=== PATIENT | female | born 1965 | race Caucasian/White ===

== ENCOUNTER 2019-05-05 09:20 | Day surgery (SDC) | payer OTHER ==
--- OUTSIDE RECORDS SUMMARY | 2019-05-05 09:27 | XMS REPORT ---
:1965 [facility] Address [address] [place] [address] Dr. Lora [address] [place] [id number] Care Team Providers Name Role Phone Unavailable Unavailable Unavailable Problems This patient has no known problems. Allergies, Adverse Reactions, Alerts This patient has no known allergies or adverse reactions. Medications This patient has no known medications.
[2019-05-05] MEDS ORDERED: Ringers Lactate 1,000 ML IV ONE (09:39)
[2019-05-05] MEDS ORDERED: OXYMETAZOLINE HCL 0.05% 15ML NAS ONE ×4 (09:39→11:17)
[2019-05-05] MEDS ORDERED: NA CHLORIDE 0.9% 250 ML ONE (11:18)
[2019-05-05] MEDS ORDERED: LIDOCAINE 1% W/EPI 1:100,000 MDV 20 ML VIAL ONE (11:18)
[2019-05-05] MEDS ORDERED: MIDAZOLAM HCL 2 MG/2 ML INJ ONE (11:19)
[2019-05-05] MEDS ORDERED: propofoL 200 MG/20 ML VIAL IV ONE (11:19)
[2019-05-05] MEDS ORDERED: GLYCOPYRROLATE 0.2 MG/ML SYR ONE (11:19)
[2019-05-05] MEDS ORDERED: LIDOCAINE 2% MPF 5 ML VIAL ONE (11:20)
[2019-05-05] MEDS ORDERED: dexAMETHasone 10 MG/ML VIAL ONE (11:20)
[2019-05-05] MEDS ORDERED: FENTANYL CITR 250 MCG/5 ML ONE (11:20)
[2019-05-05] MEDS ORDERED: ROCURONIUM 50 MG/5 ML VIAL IV ONE (11:20)
[2019-05-05] MEDS ORDERED: ONDANSETRON 4 MG/2 ML VIAL ONE (13:17)
[2019-05-05 14:19] VITALS: BP 166/82; TEMP 97.6; O2SAT 94
[2019-05-05] MEDS ORDERED: TRAMADOL HCL 50 MG TAB ONE (15:19)
--- NOTE | 2019-05-06 00:47 | OP ---
Date of Procedure: 05/05/2019 Surgeon: Dorothy Rodriguez MD Preoperative Diagnoses: Acute recurrent sinusitis, chronic; Barosinusitis, chronic ethmoid sinusitis; and inferior turbinate hypertrophy with nasal obstruction. Procedure: Bilateral nasal endoscopy with frontal sinus balloon dilation, bilateral nasal endoscopy with maxillary sinus balloon dilation, left partial ethmoidectomy, and bilateral inferior turbinate reduction by submucous resection. Indication For Procedure: Ms. Macedo presented with recurrent sinusitis and hoh sinusitis with no significant mucosal disease of the forehead or cheek sinuses, but recurrent pressure and very narrow sinus outflow tracts on imaging. She was also noted to have a complete opacification of the left ethmoid bulla and a left josé antonio bullosa, as well as large turbinates. The risks , benefits, and alternatives to the procedures were discussed with the patient, who agreed to proceed. Description Of Procedure: The patient was brought to the operating room. She was placed under general anesthesia via oral endotracheal tube. The head of bed was turned 90 degrees. The nasal hairs were trimmed and the nose was packed with Afrin-soaked pledgets. The face was draped in a sterile fashion for sinus surgery. The pledgets were removed and a 0-degree endoscope was used to perform a nasal endoscopy. The patient was noted to have large inferior turbinates. Despite application of topical decongestants, the left middle turbinate was wide consistent with radiographic findings of a josé antonio bullosa. The left middle turbinate was injected with 1% lidocaine with epinephrine. A sickle knife was used to make an incision in the anterior aspect of the middle turbinate. A thru-cut Blakesley and thru-cut 45-degree Blakesley were used to divide the lateral portion of the josé antonio bullosa, which was then removed. The cut edges were refined using the microdebrider. The middle meatus was packed with Afrin-soaked pledgets and attention was turned to the balloon sinuplasty portion of the procedure. The [employer] Entellus balloon device was prepared according to suction plate carrier cleaner's directions and configured for cannulation of the frontal sinus. The device was passed using endoscopic visualization into the right middle meatus. The tip was passed just posterior to the uncinate process and advanced into the frontal recess. The placement was confirmed by bright luminescence of the forehead using the lighted guidewire. The balloon was then advanced over the device and inflated for dilation of the frontal recess. The device was carefully withdrawn and Afrin-soaked pledgets were applied to the middle meatus. Attention was then turned to the left side. The previously placed Afrin-soaked pledget was removed and the left frontal recess was dilated using the balloon in a similar fashion as the contralateral side. The balloon device was then reconfigured for application to the maxillary sinus and both the right and the left sinuses were successfully dilated. Attention was then turned to the left ethmoid. A [place] elevator was used to incise into the ethmoid bulla and a straight Blakesley and a 45-degree thru-cut Blakesley were used to dissect and remove bony partitions from the anterior ethmoid. The ethmoid bulla was noted to have moderate thick mucus within it, which was suctioned. The middle meatus was then packed with Afrin-soaked pledgets and attention was turned to the inferior turbinates. The head of the inferior turbinates was injected with 1% lidocaine with epinephrine. After time for effect, the sickle knife was used to incise the head of the middle turbinate and a [place] elevator was used to develop a submucosal pocket. The inferior turbinate blade was fitted on the microdebrider and used to perform a submucosal resection along the medial aspect of the middle turbinates. A small portion of soft tissue from the inferior most aspect was removed as well. The nose was packed with Afrin-soaked pledgets for several minutes. After time for effect, these were removed and the handle of the sickle knife was used to perform a down fracture of the inferior turbinate to provide additional opening of the nasal airway. The nasal cavity was then thoroughly irrigated with copious amounts of saline to remove any blood or mucus debris. The area was then examined. The residual portion of the left middle turbinate was felt to be very floppy and due to concerns for scarring or lateralization of the middle turbinate, a propel mini steroid eluting stent was placed within the left ethmoid cavity to prevent lateralization and scar formation. The nasal cavity and nasopharynx were then thoroughly suctioned. Hemostasis was felt to be very good and the patient was returned to care of anesthesia for awakening, extubation in the operating room, which proceeded without difficulty. Complications: None. Disposition: Patient will be discharged home later today in the care of her family and follow up with Dr. Rodriguez in 1 to 2 weeks for her first postoperative debridement. FIONA/LILLY Voice ID: [id number] Report ID: [id number] [id number]
== END 2019-05-05 15:40 | disposition home or self-care (01) ==
LOC: OR 09:20
PROVIDERS: ATTEND Otolaryngology
PROC: 09TL8ZZ Resection of Nasal Turbinate, Via Natural or Artificial Opening Endoscopic (ICD-10-PCS; 2019-05-05)
PROC: 09QT8ZZ Repair Left Frontal Sinus, Via Natural or Artificial Opening Endoscopic (ICD-10-PCS; 2019-05-05)
PROC: 09QQ8ZZ Repair Right Maxillary Sinus, Via Natural or Artificial Opening Endoscopic (ICD-10-PCS; 2019-05-05)
PROC: 09QR8ZZ Repair Left Maxillary Sinus, Via Natural or Artificial Opening Endoscopic (ICD-10-PCS; 2019-05-05)
PROC: 09QS8ZZ Repair Right Frontal Sinus, Via Natural or Artificial Opening Endoscopic (ICD-10-PCS; 2019-05-05)
PROC: 09BV8ZZ Excision of Left Ethmoid Sinus, Via Natural or Artificial Opening Endoscopic (ICD-10-PCS; principal; 2019-05-05 10:15)
DX: J01.81 Other acute recurrent sinusitis (principal); J32.2 Chronic ethmoidal sinusitis; T70.1XXA Sinus barotrauma, initial encounter; J34.3 Hypertrophy of nasal turbinates; J34.89 Other specified disorders of nose and nasal sinuses
CPT/HCPCS: 88304; 88311; 31296; 31295; 31254; 30140; J2704; J2250; J3010; J1100; J7120; J7030; J2405